=== PATIENT | female | born 1930 | race African-American/Black ===

== ENCOUNTER 2017-03-08 10:35 | Emergency (ER) | payer MEDICARE, OTHER ==
[~2017-03-08] VITALS: Ht 167.6 cm; Wt 80.0 kg
[~2017-03-08 10:35] MED LIST: ASPI-516 CHEW; BACT800T5 PO; FURO40TA PO; POTA10CA PO; XARE15TA PO
[2017-03-08 10:41] VITALS: BP 136/76; PULSE 100; RESP 20; TEMP 98.7; O2SAT 97
--- NOTE | 2017-03-08 11:43 | PD ---
HPI Chief Complaint: Cold / Flu Symptoms Time Seen by Provider: 11:30 Travel History International Travel<30 days: No Contact w/Intl Traveler<30days: No Traveled to known affect area: No History of Present Illness HPI 86-year-old elderly female presents to the emergency department via EMS for evaluation of cough. The patient states she has been coughing for about 5-6 days. She states is a nonproductive cough. She denies any fevers or chills. She denies any chest pain or shortness of breath. No abdominal pain. Nausea, vomiting, diarrhea. She reports that her granddaughter wanted her to be seen. Patient denies any medical history to me. However, when looking back of the chart, she does have history of congestive heart failure as well as DVT. The patient states she has not had any pain at this time. Patient is lying in stretcher with her bed sheets on the stretcher. She has a adult diaper on. Moderate severity. No exacerbating or alleviating factors. PFSH Past Medical History Arthritis: Yes (both hands and knees) Heart Rhythm Problems: No Cancer: No Cardiac Catheterization: Yes Cardiovascular Problems: No High Cholesterol: Yes Congestive Heart Failure: No Diabetes: No Diminished Hearing: No Endocrine: No Genitourinary: No Hiatal Hernia: No Hypertension: Yes Immune Disorder: No Implanted Vascular Access Dvce: No Neurologic: Yes Psychiatric: No Reproductive: No Respiratory: No Thyroid Disease: No Ulcer: No Menopausal: Yes Past Surgical History Abdominal Surgery: Yes (gallstones) Cardiac Surgery: No Cholecystectomy: Yes Coronary Artery Bypass Graft: No Ear Surgery: No Endocrine Surgery: No Eye Surgery: No Genitourinary Surgery: No Gynecologic Surgery: No Oral Surgery: No Thoracic Surgery: No Other Surgery: Yes Social History Alcohol Use: No Tobacco Use: No Substance Use: No Allergies-Medications (Allergen,Severity, Reaction): Coded Allergies: lisinopril (Unverified Allergy, Intermediate, Cough, 10/12/16) Reported Meds & Prescriptions Reported Meds & Active Scripts Active Potassium Chloride ER (Potassium Chloride) 10 Meq Cap 10 Meq PO DAILY Furosemide 40 Mg Tab 40 Mg PO DAILY 30 Days Xarelto (Rivaroxaban) 15 Mg Tab 15 Mg PO BID Review of Systems Except as stated in HPI: all other systems reviewed are Neg Physical Exam Narrative GENERAL: Well-nourished, well-developed elderly female patient, afebrile. SKIN: Focused skin assessment warm/dry. HEAD: Normocephalic. Atraumatic. EYES: No scleral icterus. No injection or drainage. NECK: Supple, trachea midline. No JVD or lymphadenopathy. CARDIOVASCULAR: Regular rate and rhythm without murmurs, gallops, or rubs. RESPIRATORY: Breath sounds equal bilaterally. No accessory muscle use. Lungs sounds clear to auscultation. GASTROINTESTINAL: Abdomen soft, non-tender, nondistended. Umbilical hernia noted that is soft to palpation. MUSCULOSKELETAL: No cyanosis. Bilateral 2+ lower extremity edema BACK: Nontender without obvious deformity. No CVA tenderness. Data Data Last Documented VS Vital Signs Date Time Temp Pulse Resp B/P (MAP) Pulse Ox O2 Delivery O2 Flow Rate FiO2 03/08/17 19:31 83 18 140/62 (88) 96 Room Air 03/08/17 10:41 98.7 Orders Orders Complete Blood Count With Diff (03/08/17 11:39) Comprehensive Metabolic Panel (03/08/17 11:39) B-Type Natriuretic Peptide (03/08/17 11:39) Act Partial Throm Time (Ptt) (03/08/17 11:39) Prothrombin Time / Inr (Pt) (03/08/17 11:39) Magnesium (Mg) (03/08/17 11:39) Ckmb (Isoenzyme) Profile (03/08/17 11:39) Troponin I (03/08/17 11:39) Urinalysis - C+S If Indicated (03/08/17 11:39) Iv Access Insert/Monitor (03/08/17 11:39) Electrocardiogram (03/08/17 11:39) Ecg Monitoring (03/08/17 11:39) Oximetry (03/08/17 11:39) Chest, Single Ap (03/08/17 11:39) Sodium Chloride 0.9% Flush (Ns Flush) (03/08/17 11:45) Cath For Specimen (03/08/17 11:39) Influenzae A/B Antigen (03/08/17 13:39) Urinary Catheter Insert/Apply (03/08/17 15:50) Urine Culture (03/08/17 15:57) Ed Discharge Order (03/08/17 17:21) Ceftriaxone Inj (Rocephin Inj) (03/08/17 17:30) Labs Laboratory Tests Test 03/08/17 12:05 03/08/17 15:57 White Blood Count 11.4 TH/MM3 Red Blood Count 3.39 MIL/MM3 Hemoglobin 10.3 GM/DL Hematocrit 31.1 % Mean Corpuscular Volume 91.5 FL Mean Corpuscular Hemoglobin 30.5 PG Mean Corpuscular Hemoglobin Concent 33.3 % Red Cell Distribution Width 16.9 % Platelet Count 226 TH/MM3 Mean Platelet Volume 8.4 FL Neutrophils (%) (Auto) 78.0 % Lymphocytes (%) (Auto) 11.7 % Monocytes (%) (Auto) 7.4 % Eosinophils (%) (Auto) 2.2 % Basophils (%) (Auto) 0.7 % Neutrophils # (Auto) 8.9 TH/MM3 Lymphocytes # (Auto) 1.3 TH/MM3 Monocytes # (Auto) 0.8 TH/MM3 Eosinophils # (Auto) 0.3 TH/MM3 Basophils # (Auto) 0.1 TH/MM3 CBC Comment DIFF FINAL Differential Comment Prothrombin Time 11.3 SEC Prothromb Time International Ratio 1.1 RATIO Activated Partial Thromboplast Time 22.0 SEC Blood Urea Nitrogen 17 MG/DL Creatinine 1.16 MG/DL Random Glucose 102 MG/DL Total Protein 7.1 GM/DL Albumin 2.6 GM/DL Calcium Level 8.5 MG/DL Magnesium Level 2.1 MG/DL Alkaline Phosphatase 78 U/L Aspartate Amino Transf (AST/SGOT) 9 U/L Alanine Aminotransferase (ALT/SGPT) 15 U/L Total Bilirubin 0.4 MG/DL Sodium Level 141 MEQ/L Potassium Level 3.6 MEQ/L Chloride Level 107 MEQ/L Carbon Dioxide Level 25.5 MEQ/L Anion Gap 9 MEQ/L Estimat Glomerular Filtration Rate 53 ML/MIN Total Creatine Kinase 44 U/L Troponin I LESS THAN 0.02 NG/ML B-Type Natriuretic Peptide 10 PG/ML Urine Color YELLOW Urine Turbidity HAZY Urine pH 5.5 Urine Specific [place] 1.009 Urine Protein NEG mg/dL Urine Glucose (UA) NEG mg/dL Urine Ketones NEG mg/dL Urine Occult Blood NEG Urine Nitrite POS Urine Bilirubin NEG Urine Urobilinogen LESS THAN 2.0 MG/DL Urine Leukocyte Esterase LARGE Urine RBC 1 /hpf Urine WBC 17 /hpf Urine WBC Clumps RARE Urine Squamous Epithelial Cells 1 /hpf Urine Bacteria MANY /hpf Urine Hyaline Casts 3 /lpf Urine Mucus FEW /lpf Microscopic Urinalysis Comment CULTURE INDICATED MDM Medical Decision Making Medical Screen Exam Complete: Yes Emergency Medical Condition: Yes Medical Record Reviewed: Yes Differential Diagnosis URI versus pneumonia versus CHF exacerbation versus UTI Narrative Course 86-year-old elderly female presents to the emergency department for evaluation of a cough for 5-6 days. EKG, CBC, CMP, BNP, magnesium, CK, troponin, PTT, PT/ INR, UA are ordered and pending. Chest x-ray is ordered and pending. Patient is initially seen and evaluated in the ambulance hallway. Patient will be transferred to a medical bed for further evaluation and disposition. Rebecca Kimble Mar 08, 2017 11:43
[2017-03-08] MEDS ORDERED: SODIUM CHLORIDE 0.9% FLUSH 10 ML FLUSH IVF PRN (11:45)
--- NOTE | 2017-03-08 12:27 | RADRPT ---
EXAM DATE/TIME: 03/08/2017 12:10 [facility] COMPARISON: CHEST SINGLE AP, January 02, 2017, 10:33. INDICATIONS : Fever, cough, shortness of breath with wheezing. MEDICAL HISTORY : None. SURGICAL HISTORY : None. ENCOUNTER: Initial ACUITY: 1 day PAIN SCORE: 0/10 LOCATION: Left chest FINDINGS: Linear scarring or trace fluid in the minor fissure. No consolidation or effusion. No pneumothorax. M ild cardiomegaly. Tortuous aorta. CONCLUSION: 1. No focal consolidation or effusion. Linear scarring or trace fluid in the region of the minor fiss ure. Matthew Ibanez MD on March 08, 2017 at 12:24 Board Certified Radiologist. This report was verified electronically.
[2017-03-08 12:32] LABS: AUTOMATED NEUTROPHIL # 8.9 TH/MM3 (1.8-7.7); BASOPHIL # 0.1 TH/MM3 (0-0.2); BASOPHIL % 0.7 % (0.0-2.0); EOSINOPHIL # 0.3 TH/MM3 (0-0.4); EOSINOPHIL % 2.2 % (0.0-4.0); HEMATOCRIT 31.1 % (35.0-46.0); HEMOGLOBIN 10.3 GM/DL (11.6-15.3); LYMPH % 11.7 % (9.0-44.0); LYMPHOCYTE # 1.3 TH/MM3 (1.0-4.8); MEAN CELL VOLUME 91.5 FL (80.0-100.0); MEAN CORPUSCULAR HEMOGLOBIN 30.5 PG (27.0-34.0); MEAN CORPUSCULAR HGB CONC 33.3 % (32.0-36.0); MEAN PLATELET VOLUME 8.4 FL (7.0-11.0); MONO % 7.4 % (0.0-8.0); MONOCYTE # 0.8 TH/MM3 (0-0.9); PLATELET COUNT 226 TH/MM3 (150-450); RED BLOOD COUNT 3.39 MIL/MM3 (4.00-5.30); RED CELL DISTRIBUTION WIDTH 16.9 % (11.6-17.2); WHITE BLOOD COUNT 11.4 TH/MM3 (4.0-11.0)
[2017-03-08 12:40] LABS: INTERNATIONAL NORMALIZED RATIO 1.1 RATIO; PROTHROMBIN TIME - PATIENT 11.3 SEC (9.8-11.6)
[2017-03-08 12:54] LABS: ALBUMIN 2.6 GM/DL (3.4-5.0); ALT (GPT) 15 U/L (10-53); AST (GOT) 9 U/L (15-37); BICARBONATE 25.5 MEQ/L (21.0-32.0); BLOOD UREA NITROGEN 17 MG/DL (7-18); CALCIUM 8.5 MG/DL (8.5-10.1); CHLORIDE 107 MEQ/L (98-107); CREATININE 1.16 MG/DL (0.50-1.00); GLOMERULAR FILTRATION RATE 53 ML/MIN (>89); GLUCOSE,RANDOM 102 MG/DL (74-106); MAGNESIUM 2.1 MG/DL (1.5-2.5); SODIUM (NA) 141 MEQ/L (136-145)
[2017-03-08 12:58] LABS: ALKALINE PHOSPHATASE 78 U/L (45-117); TOTAL BILIRUBIN ADULT 0.4 MG/DL (0.2-1.0); TOTAL PROTEIN 7.1 GM/DL (6.4-8.2); TROPONIN I LESS THAN 0.02 NG/ML (0.02-0.05)
[2017-03-08 15:58] VITALS: BP 154/63; PULSE 85; RESP 19; O2SAT 97
[2017-03-08 17:03] LABS: BACTERIA, URINE MANY /hpf; BILIRUBIN, URINE NEG (NEG); BLOOD, URINE NEG (NEG); GLUCOSE,URINE NEG (NEG); HYALINE CAST, URINE 3 /lpf (RARE); KETONE, URINE NEG (NEG); MUCUS URINE FEW /lpf (OCC); NITRITE,URINE POS (NEG); PH, URINE 5.5 (5.0-8.5); SQUAMOUS EPITHELIAL CELL URINE 1 /hpf (0-5); URINE COLOR YELLOW (YELLW/STRAW); URINE LEUKOCYTE ESTERASE LARGE (NEG); WHITE BLOOD CELL CLUMPS RARE
[2017-03-08] MEDS ORDERED: CEPH-460 PO (17:26)
--- NOTE | 2017-03-08 17:27 | PD ---
Physical Exam Narrative GENERAL: Well-nourished, well-developed patient. SKIN: Warm and dry. HEAD: Normocephalic and atraumatic. EYES: No injection or drainage. ENT: No nasal drainage noted. NECK: Supple, trachea midline. CARDIOVASCULAR: Regular rate and rhythm RESPIRATORY: no increased effort. No accessory muscle use. GASTROINTESTINAL: Abdomen soft, nondistended. NEUROLOGICAL: Awake. moves all extremities and sensory grossly within normal limits. Normal speech. Data Data Last Documented VS Vital Signs Date Time Temp Pulse Resp B/P (MAP) Pulse Ox O2 Delivery O2 Flow Rate FiO2 03/08/17 15:58 85 19 154/63 (93) 97 Room Air 03/08/17 10:41 98.7 Orders Orders Complete Blood Count With Diff (03/08/17 11:39) Comprehensive Metabolic Panel (03/08/17 11:39) B-Type Natriuretic Peptide (03/08/17 11:39) Act Partial Throm Time (Ptt) (03/08/17 11:39) Prothrombin Time / Inr (Pt) (03/08/17 11:39) Magnesium (Mg) (03/08/17 11:39) Ckmb (Isoenzyme) Profile (03/08/17 11:39) Troponin I (03/08/17 11:39) Urinalysis - C+S If Indicated (03/08/17 11:39) Iv Access Insert/Monitor (03/08/17 11:39) Electrocardiogram (03/08/17 11:39) Ecg Monitoring (03/08/17 11:39) Oximetry (03/08/17 11:39) Chest, Single Ap (03/08/17 11:39) Sodium Chloride 0.9% Flush (Ns Flush) (03/08/17 11:45) Cath For Specimen (03/08/17 11:39) Influenzae A/B Antigen (03/08/17 13:39) Urinary Catheter Insert/Apply (03/08/17 15:50) Urine Culture (03/08/17 15:57) Ed Discharge Order (03/08/17 17:21) Ceftriaxone Inj (Rocephin Inj) (03/08/17 17:30) Labs Laboratory Tests Test 03/08/17 12:05 03/08/17 15:57 White Blood Count 11.4 TH/MM3 Red Blood Count 3.39 MIL/MM3 Hemoglobin 10.3 GM/DL Hematocrit 31.1 % Mean Corpuscular Volume 91.5 FL Mean Corpuscular Hemoglobin 30.5 PG Mean Corpuscular Hemoglobin Concent 33.3 % Red Cell Distribution Width 16.9 % Platelet Count 226 TH/MM3 Mean Platelet Volume 8.4 FL Neutrophils (%) (Auto) 78.0 % Lymphocytes (%) (Auto) 11.7 % Monocytes (%) (Auto) 7.4 % Eosinophils (%) (Auto) 2.2 % Basophils (%) (Auto) 0.7 % Neutrophils # (Auto) 8.9 TH/MM3 Lymphocytes # (Auto) 1.3 TH/MM3 Monocytes # (Auto) 0.8 TH/MM3 Eosinophils # (Auto) 0.3 TH/MM3 Basophils # (Auto) 0.1 TH/MM3 CBC Comment DIFF FINAL Differential Comment Prothrombin Time 11.3 SEC Prothromb Time International Ratio 1.1 RATIO Activated Partial Thromboplast Time 22.0 SEC Blood Urea Nitrogen 17 MG/DL Creatinine 1.16 MG/DL Random Glucose 102 MG/DL Total Protein 7.1 GM/DL Albumin 2.6 GM/DL Calcium Level 8.5 MG/DL Magnesium Level 2.1 MG/DL Alkaline Phosphatase 78 U/L Aspartate Amino Transf (AST/SGOT) 9 U/L Alanine Aminotransferase (ALT/SGPT) 15 U/L Total Bilirubin 0.4 MG/DL Sodium Level 141 MEQ/L Potassium Level 3.6 MEQ/L Chloride Level 107 MEQ/L Carbon Dioxide Level 25.5 MEQ/L Anion Gap 9 MEQ/L Estimat Glomerular Filtration Rate 53 ML/MIN Total Creatine Kinase 44 U/L Troponin I LESS THAN 0.02 NG/ML B-Type Natriuretic Peptide 10 PG/ML Urine Color YELLOW Urine Turbidity HAZY Urine pH 5.5 Urine Specific [place] 1.009 Urine Protein NEG mg/dL Urine Glucose (UA) NEG mg/dL Urine Ketones NEG mg/dL Urine Occult Blood NEG Urine Nitrite POS Urine Bilirubin NEG Urine Urobilinogen LESS THAN 2.0 MG/DL Urine Leukocyte Esterase LARGE Urine RBC 1 /hpf Urine WBC 17 /hpf Urine WBC Clumps RARE Urine Squamous Epithelial Cells 1 /hpf Urine Bacteria MANY /hpf Urine Hyaline Casts 3 /lpf Urine Mucus FEW /lpf Microscopic Urinalysis Comment CULTURE INDICATED MDM Supervised Visit with LION: No Interpretation(s) CBC & BMP Diagram 03/08/17 12:05 Total Protein 7.1, Albumin 2.6 L, Calcium Level 8.5, Magnesium Level 2.1, Alkaline Phosphatase 78, Aspartate Amino Transf (AST/SGOT) 9 L, Alanine Aminotransferase (ALT/SGPT) 15, Total Bilirubin 0.4 UA with UTI Last 24 hours Impressions Chest X-Ray 03/08/17 1139 Signed Impressions: Service Date/Time: Wednesday, March 08, 2017 12:10 - CONCLUSION: 1. No focal consolidation or effusion. Linear scarring or trace fluid in the region of the minor fissure. Matthew Ibanez MD Narrative Course Patient was moved from ambulance hallway. Workup followed. Family came to room and states they are concerned that she has not urinated all day. Biswas catheter placed. Patient has urinary tract infection. Offered observation but patient is wanting to go home. Patient and family agree to discharge with close primary and urology follow-up. We'll give Rocephin here and send home on Keflex. Given return instructions Diagnosis Primary Impression: UTI (urinary tract infection) Qualified Codes: N39.0 - Urinary tract infection, site not specified Additional Impressions: Urinary retention Cough Patient Instructions: General Instructions Additional Instruction: keep biswas in place, follow with primary tommorrow, follow with urology within one week, return as needed Med/Other Pt SpecificInfo: Prescription(s) given Scripts Cephalexin (Keflex) 500 Mg Cap 500 MG PO Q12H for Infection for 10 Days, #20 CAP 0 Refills Prov: Marita Colbert MD 03/08/17 Disposition: 01 DISCHARGE HOME Condition: Stable Marita Colbert MD Mar 08, 2017 17:27
[2017-03-08] MEDS ORDERED: cefTRIAXone INJ 1,000 MG in SODIUM CHLORIDE 0.9% INJ 100 ML IV ONE (17:30)
[2017-03-08 19:31] VITALS: BP 140/62; PULSE 83; RESP 18; O2SAT 96
[2017-03-08 21:05] VITALS: BP 169/69
--- NOTE | 2017-03-09 22:08 | EKG ---
Date Performed: 03/08/2017 Time Performed: 15:02:40 PTAGE: 86 years EKG: Sinus rhythm INFERIOR MYOCARDIAL INFARCTION ABNORMAL ECG PREVIOUS TRACING : 01/02/2017 10.33 Compared to prior tracing no significant change DOCTOR: Howie Irving Interpretating Date/Time 03/09/2017 22:06:07
== END 2017-03-08 21:44 | disposition home or self-care (01) ==
LOC: NEPC 10:35
DX: N39.0 Urinary tract infection, site not specified (principal); B96.20 Unspecified Escherichia coli [E. coli] as the cause of diseases classified elsewhere; R33.9 Retention of urine, unspecified; R05 Cough; E78.00 Pure hypercholesterolemia, unspecified; I10 Essential (primary) hypertension; I50.9 Heart failure, unspecified; I21.9 Acute myocardial infarction, unspecified; R94.31 Abnormal electrocardiogram [ECG] [EKG]; Z86.718 Personal history of other venous thrombosis and embolism
CPT/HCPCS: 51702; 71045; 80053; 81001; 82550; 83735; 83880; 84484; 85025; 85610; 85730; 87077; 87086; 87186; 87804; 93005; 96365; 99285; J0696